=== PATIENT | female | born 2000 | race Caucasian/White ===

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

== ENCOUNTER 2019-12-04 13:56 | Emergency (ER) | payer MEDICAID ==
[~2019-12-04] VITALS: Ht 167.6 cm; Wt 65.8 kg
[2019-12-04 14:46] VITALS: Ht 167.6 cm; Wt 65.8 kg
[2019-12-04 18:49] VITALS: BP 112/67
== END 2019-12-04 18:51 | disposition home or self-care (01) ==
LOC: ED 13:56
DX: R04.0 Epistaxis (principal); G44.209 Tension-type headache, unspecified, not intractable; R11.0 Nausea; R42 Dizziness and giddiness
CPT/HCPCS: J0780; J1885